=== PATIENT | male | born 1960 | race Caucasian/White ===

== ENCOUNTER → 2016-08-04 | Outpatient (CLI) | payer BC, OTHER ==
[2016-08-04 14:22] LABS: BASO % 1.1 % (0.0-1.0); EOS # 0.1 K/mm3 (0.0-0.50); EOS % 3.3 % (0.0-3.0); LYMPH # 1.3 K/mm3 (1.5-4.5); LYMPH % 28.3 % (24.0-44.0); MEAN CORPUSCULAR HEMOGLOBIN 31.9 pg (27.0-33.0); MEAN CORPUSCULAR HGB CONC 34.1 g/dl (32.0-36.5); MEAN CORPUSCULAR VOLUME 93.6 fl (80.0-96.0); MONO # 0.3 K/mm3 (0.0-0.8); MONO % 7.2 % (0.0-5.0); NEUTROPHILS # 2.4 K/mm3 (1.8-7.7); NEUTROPHILS % 57.4 % (36.0-66.0); RED CELL DISTRIBUTION WIDTH 13.2 % (11.5-14.5); WHITE BLOOD COUNT 4.2 K/mm3 (4.0-10.0)
[2016-08-04 14:35] LABS: ALBUMIN 4.1 GM/DL (3.2-5.2); ALBUMIN/GLOBULIN RATIO 1.32 (1.00-1.93); ALKALINE PHOSPHATASE 97 U/L (45-117); ALT/SGPT 69 U/L (12-78); ANION GAP 7 MEQ/L (8-16); AST/SGOT 25 U/L (15-37); BILIRUBIN,TOTAL 0.5 MG/DL (0.2-1.0); BLOOD UREA NITROGEN 17 MG/DL (7-18); CALCIUM LEVEL 8.9 MG/DL (8.5-10.1); CARBON DIOXIDE LEVEL 28 MEQ/L (21-32); CHLORIDE LEVEL 105 MEQ/L (98-107); CHOLESTEROL LEVEL 255 MG/DL (<200); CREATININE FOR GFR 0.91 MG/DL (0.70-1.30); FREE T4 0.78 NG/DL (0.76-1.46); GLOMERULAR FILTRATION RATE > 60.0 (>56); GLUCOSE, FASTING 112 MG/DL (70-105); POTASSIUM SERUM 5.1 MEQ/L (3.5-5.1); SODIUM LEVEL 140 MEQ/L (136-145); TOTAL PROTEIN 7.2 GM/DL (6.4-8.2); TRIGLYCERIDES LEVEL 129 MG/DL (<150)
== END ==
LOC: M SMT 07:58
PROVIDERS: ATTEND Physician Assistant
DX: Z00.00 Encounter for general adult medical examination without abnormal findings (principal); I10 Essential (primary) hypertension; E55.9 Vitamin D deficiency, unspecified

== ENCOUNTER → 2016-10-05 | Outpatient (CLI) | payer BC, OTHER ==
[~2016-10-05] VITALS: Ht 182.9 cm; Wt 117.9 kg
[~2016-10-05] MED LIST: AMLO10TA PO; ASPI1TAB PO; CRES5TAB PO; LOSA50TA20 PO; LR 1,000 ML IV SCH; PROPOFOL 200 MG/20 ML VIAL As Ordered ONE; VITMTA PO; XYZA5TAB2 PO
[2016-10-05 10:50] VITALS: BP 133/89
--- NOTE | 2016-10-05 11:04 | ROOR ---
Patient Name: Wilman Ernst Procedure Date: 10/05/2016 9:33 AM Date of : 1960 Age: 56 Room: [facility] Gender: Male Note Status: Finalized Procedure: Colonoscopy Indications: Screening for colorectal malignant neoplasm, This is the patient's first colonoscopy Providers: Paul Woods MD Referring MD: Adrianne SORIANO DO Requestyasemin Provider: Medicines: Monitored Anesthesia Care Complications: No immediate complications. Procedure: Pre-Anesthesia Assessment: - Prior to the procedure, a History and Physical was performed, and patient medications and allergies were reviewed. The patient is competent. The risks and benefits of the procedure and the sedation options and risks were discussed with the patient. All questions were answered and informed consent was obtained. Patient identification and proposed procedure were verified by the physician, the nurse and the anesthesiologist in the procedure room. Mental Status Examination: alert and oriented. Airway Examination: normal oropharyngeal airway and neck mobility. CV Examination: regular rate and rhythm. Prophylactic Antibiotics: The patient does not require prophylactic antibiotics. Prior Anticoagulants: The patient has taken no previous anticoagulant or antiplatelet agents. ASA Grade Assessment: II - A patient with mild systemic disease. After reviewing the risks and benefits, the patient was deemed in satisfactory condition to undergo the procedure. The anesthesia plan was to use monitored anesthesia care (MAC). Immediately prior to administration of medications, the patient was re-assessed for adequacy to receive sedatives. The heart rate, respiratory rate, oxygen saturations, blood pressure, adequacy of pulmonary ventilation, and response to care were monitored throughout the procedure. The physical status of the patient was re-assessed after the procedure. The was introduced through the anus and advanced to the terminal ileum, with identification of the appendiceal orifice and IC valve. The colonoscopy was performed without difficulty. The patient tolerated the procedure well. The quality of the bowel preparation was excellent. Findings: The perianal and digital rectal examinations were normal. A 4 mm polyp was found in the hepatic flexure. The polyp was sessile. The polyp was removed with a hot biopsy forceps. Resection and retrieval were complete. The pathology specimen was placed into Bottle Number 1. A 5 mm polyp was found in the descending colon. The polyp was sessile. The polyp was removed with a hot biopsy forceps. Resection and retrieval were complete. The pathology specimen was placed into Bottle Number 2. A 8 mm polyp was found in the descending colon. The polyp was pedunculated. The polyp was removed with a hot snare. Resection and retrieval were complete. The pathology specimen was placed into Bottle Number 2. Estimated blood loss: none. A 12 mm polyp was found at 50 cm proximal to the anus. The polyp was pedunculated. The polyp was removed with a hot snare. Resection and retrieval were complete. The pathology specimen was placed into Bottle Number 3. A 5 mm polyp was found in the rectum. The polyp was sessile. The polyp was removed with a hot biopsy forceps. Resection and retrieval were complete. The pathology specimen was placed into Bottle Number 4. Impression: - One 4 mm polyp at the hepatic flexure, removed with a hot biopsy forceps. Resected and retrieved. - One 5 mm polyp in the descending colon, removed with a hot biopsy forceps. Resected and retrieved. - One 8 mm polyp in the descending colon, removed with a hot snare. Resected and retrieved. - One 12 mm polyp at 50 cm proximal to the anus, removed with a hot snare. Resected and retrieved. - One 5 mm polyp in the rectum, removed with a hot biopsy forceps. Resected and retrieved. Recommendation: - Await pathology results. - Telephone endoscopist for pathology results in 1 week. Paul Woods MD 10/05/2016 11:04:15 AM Number of Addenda: 0 Note Initiated On: 10/05/2016 9:33 AM Estimated Blood Loss: Estimated blood loss: none.
== END | disposition home or self-care (01) ==
LOC: M OPP 08:05
PROVIDERS: ATTEND Surgery
DX: Z12.11 Encounter for screening for malignant neoplasm of colon (principal); K63.5 Polyp of colon; D12.4 Benign neoplasm of descending colon; D12.5 Benign neoplasm of sigmoid colon; K62.1 Rectal polyp; I10 Essential (primary) hypertension; E78.00 Pure hypercholesterolemia, unspecified; K21.9 Gastro-esophageal reflux disease without esophagitis; Z79.899 Other long term (current) drug therapy; Z79.82 Long term (current) use of aspirin

== ENCOUNTER 2016-10-11 09:09 | Inpatient (IN) | payer BC, OTHER ==
[2016-10-11] VITALS (7 sets, daily range): BP systolic 126–148; BP diastolic 63–90
[~2016-10-11 09:09] MED LIST changes: -LR 1,000 ML IV SCH; -PROPOFOL 200 MG/20 ML VIAL As Ordered ONE; -VITMTA PO
[2016-10-11] MEDS ORDERED: ACETAMINOPHEN TAB 650MG DOSE (2X325MG) PO PRN (10:45)
[2016-10-11] MEDS ORDERED: VITMTA PO (11:30)
[2016-10-11] MEDS: LR 1,000 ML IV SCH ×3 (11:47→23:47)
[2016-10-11 16:27] LABS: MEAN CORPUSCULAR HEMOGLOBIN 32.1 pg (27.0-33.0); MEAN CORPUSCULAR HGB CONC 34.5 g/dl (32.0-36.5); MEAN CORPUSCULAR VOLUME 93.1 fl (80.0-96.0); RED CELL DISTRIBUTION WIDTH 13.1 % (11.5-14.5); WHITE BLOOD COUNT 6.7 K/mm3 (4.0-10.0)
--- NOTE | 2016-10-11 18:10 | HPE ---
DATE OF ADMISSION: 10/11/2016 ADMISSION DIAGNOSIS: Rectal bleeding 6 days postoperative from colonoscopy with polypectomy. HISTORY OF PRESENT ILLNESS: The patient is a very pleasant 56-year-old man who on 10/05/2016, had undergone an initial routine screening colonoscopy. The procedure had gone well without apparent complication. His bowel preparation was good and a complete examination was obtained all the way to the terminal ileum. The patient was found to have five small polyps that were resected. Three of these were quite small and were biopsied and destroyed with a hot biopsy forceps. There were two larger pedunculated polyps in the descending colon and at 50 cm from the anus which were snared. His pathology report revealed a sessile serrated polyp in the hepatic flexure area. The other polyps were all tubular or tubulovillous adenomas. He was discharged home on the day of procedure and had been doing well until approximately 3 o'clock in the morning on 10/11/2016, when he awakened and felt the urge to have a bowel movement. On defecation he noted the passage of some somewhat dilute bloody fluid. Over the course of the next 4 hours or so he reports having had six bowel movements containing blood of increasing degree. He presented at the [facility] for evaluation. In the emergency department he was evaluated and found to have a hematocrit of approximately 32%. He had some grossly bloody material on digital rectal examination. He was transiently hypotensive and received a bolus of fluid with resolution. I was contacted by the emergency department physician and the patient was accepted in transfer directly for evaluation and management of his colonic bleeding. MEDICATIONS: The patient's usual medications include: - aspirin 81 mg by mouth daily - Crestor 5 mg by mouth daily - Norvasc 10 mg daily - vitamin D3 4000 units by mouth daily ALLERGIES: Are none known. MEDICAL HISTORY: Is significant for hypertension and hypercholesterolemia. PAST SURGICAL HISTORY: He underwent repair of a rotator cuff injury on the left on 06/13/2016. He had a carpal tunnel release on the right in 2011 and had an adenoidectomy in 2010. On 10/05/2016 he underwent his colonoscopy with resection of polyps. FAMILY HISTORY: Noncontributory. There is no family history of colorectal cancer or polyps. SOCIAL HISTORY: The patient is a nonsmoker. REVIEW OF SYSTEMS: Reveals no prior history of rectal bleeding. He denies any abdominal pain. He has had no nausea or vomiting. He denies any history of hepatitis, pancreatitis or peptic ulcer disease. He has no cardiac or respiratory problems. He denies any genitourinary, musculoskeletal, neurologic or psychiatric symptoms. Remainder of review of systems is unremarkable. PHYSICAL EXAMINATION: Reveals a pleasant man lying quietly on the hospital bed. His temperature is 98.5 with a pulse of 90, respirations of 19 and a blood pressure of 148/81. His room air oxygen saturation is 97%. He is alert, oriented and cooperative. Sclerae are anicteric. Mucous membranes are moist. Neck is supple without mass or bruit. Heart exam shows a regular rate and rhythm. Lungs are clear to auscultation. The abdomen is moderately obese. He has bowel sounds present in all four quadrants. The abdomen is nontender to percussion. Palpation yields no tenderness and there is no palpable mass. There is no evident hernia. Extremities are without edema. He has palpable radial and pedal pulses. IMPRESSION: 1. Post polypectomy hemorrhage now 6 days post colonoscopy. 2. Hypertension. 3. Hypercholesterolemia. 4. Anemia secondary to blood loss. PLAN: The patient has been admitted to [facility]. He has been instructed to utilize the commode so that we can measure his output of stool to better backpackers manager his degree of bleeding. He is not complaining of any lightheadedness or dizziness at this time and has requested that he be allowed out of bed to a chair. I advised him that he can be up to a chair but that he must be very careful and move slowly and if he has any dizziness he must just return to the bed and request assistance whenever he desires to move. I will initially let him try some clear liquids but if it is clear that he is going to continue bleeding, then I will convert him to nothing by mouth status and anticipate proceeding with colonoscopy. I would anticipate that the most likely source for him to be bleeding is from the stalk of the polyp at 50 cm which was the largest of the polyps. Certainly any of his biopsy sites could be the cause of his bleeding. He was counseled that there is a chance that he will bleed enough to require blood transfusion, although we would like to avoid this if we can certainly. I will check back on him later in the day to see how things are progressing. JOSE RAMON
[2016-10-11] MEDS ORDERED: PROPOFOL 200 MG/20 ML VIAL As Ordered ONE ×5 (20:34→21:44)
[2016-10-11] MEDS ORDERED: fentaNYL 100 MCG/2 ML INJECTION (J3010) IV PRN (22:15)
[2016-10-11] MEDS ORDERED: NORCO, ANEXSIA 5/325MG TABLET (HYDROcodone/ACETAMINOPHEN) PO PRN ×2 (22:15→23:15)
[2016-10-11] MEDS ORDERED: ONDANSETRON 4MG/2ML VIAL (J2405) IV PRN ×2 (22:15→23:15)
[2016-10-11] MEDS ORDERED: LR 1,000 ML IV SCH (22:15)
[2016-10-12] VITALS (8 sets, daily range): BP systolic 118–140; BP diastolic 57–88
[2016-10-12 07:00] LABS: MEAN CORPUSCULAR HGB CONC 34.4 g/dl (32.0-36.5); RED CELL DISTRIBUTION WIDTH 13.2 % (11.5-14.5); WHITE BLOOD COUNT 5.1 K/mm3 (4.0-10.0)
[2016-10-12] MEDS: amLODIPine 10 MG TAB PO SCH (09:00)
[2016-10-12] MEDS: LR 1,000 ML IV SCH (09:15)
[2016-10-12] MEDS: LOSARTAN 50 MG TAB PO SCH (11:58)
[2016-10-13 02:00] VITALS: BP 124/75
[2016-10-13 06:00] VITALS: BP 130/85
[2016-10-13 06:29] LABS: MEAN CORPUSCULAR HEMOGLOBIN 33.3 pg (27.0-33.0); MEAN CORPUSCULAR HGB CONC 35.7 g/dl (32.0-36.5); MEAN CORPUSCULAR VOLUME 93.3 fl (80.0-96.0); RED CELL DISTRIBUTION WIDTH 13.5 % (11.5-14.5); WHITE BLOOD COUNT 4.2 K/mm3 (4.0-10.0)
[2016-10-13] MEDS: amLODIPine 10 MG TAB PO SCH (09:27)
[2016-10-13 09:28] VITALS: BP 130/85
[2016-10-13] MEDS: LOSARTAN 50 MG TAB PO SCH (09:28)
[2016-10-13 10:00] VITALS: BP 139/77
--- NOTE | 2016-10-19 18:30 | ROOR ---
Patient Name: Wilman Ernst Procedure Date: 10/11/2016 7:48 PM Date of : 1960 Age: 56 Gender: Male Note Status: Finalized Procedure: Colonoscopy Indications: Treatment of bleeding from polypectomy site Providers: Paul Woods MD Referring MD: 2. Inpatient 2. Inpatient Requesting Provider: Medicines: Monitored Anesthesia Care Complications: No immediate complications. Procedure: Pre-Anesthesia Assessment: - Prior to the procedure, a History and Physical was performed, and patient medications and allergies were reviewed. The patient is competent. The risks and benefits of the procedure and the sedation options and risks were discussed with the patient. All questions were answered and informed consent was obtained. Patient identification and proposed procedure were verified by the physician, the nurse and the anesthesiologist in the procedure room. Mental Status Examination: alert and oriented. Airway Examination: normal oropharyngeal airway and neck mobility. CV Examination: regular rate and rhythm. Prophylactic Antibiotics: The patient does not require prophylactic antibiotics. Prior Anticoagulants: The patient has taken no previous anticoagulant or antiplatelet agents. ASA Grade Assessment: II - A patient with mild systemic disease. After reviewing the risks and benefits, the patient was deemed in satisfactory condition to undergo the procedure. The anesthesia plan was to use monitored anesthesia care (MAC). Immediately prior to administration of medications, the patient was re-assessed for adequacy to receive sedatives. The heart rate, respiratory rate, oxygen saturations, blood pressure, adequacy of pulmonary ventilation, and response to care were monitored throughout the procedure. The physical status of the patient was re-assessed after the procedure. The Colonoscope was introduced through the anus and advanced to the cecum, identified by appendiceal orifice and ileocecal valve. The colonoscopy was performed without difficulty. The patient tolerated the procedure well. The quality of the bowel preparation was poor. Pt was not prepped due to acute bleed. There was old blood throughout. Findings: The perianal and digital rectal examinations were normal. There was some old blood and clot was found in the entire colon. Nonbleeding ulcerated mucosa with no stigmata of recent bleeding were present at 80 cm proximal to the anus. There was a shallow ulceration about 8-10mm in size at about 80 cm from the anal verge. The is consistent with a polypectomy site. There is no visible vessel or bleeeding. An area of mucosa was found at 70 cm proximal to the anus. At about 70 cm from the anal verge a small thrombosed protruding polypectomy stalk was noted. This appeared to consist primarily of a vascular bundle which was thrombosed and there was no bleeding. The diameter of this stalk was perhaps 3-4mm. The colonic mucosa was extensively irrigated during the procedure. The other three polypectomy sites were not identified and no active bleeding was seen. Impression: - Blood in the entire examined colon. - Mucosal ulceration. - Mucosa at 70 cm proximal to the anus. - No specimens collected. Recommendation: - Return to hospital floor. Attending Participation: I personally performed the entire procedure. Paul Woods MD 10/19/2016 6:30:32 PM Number of Addenda: 0 Note Initiated On: 10/11/2016 7:48 PM Estimated Blood Loss: Estimated blood loss: none.
--- NOTE | 2016-10-20 11:02 | DSES ---
DATE OF ADMISSION: 10/11/2016 DATE OF DISCHARGE: 10/13/2016 ADMITTING DIAGNOSIS: Rectal bleeding six days postoperative from colonoscopy with polypectomy. HISTORY OF PRESENT ILLNESS: The patient is a pleasant 56-year-old man who had undergone a routine screening colonoscopy on October 05. The procedure had gone well. His bowel preparation was good and a complete examination was obtained. The patient was found to have five small polyps that were resected. Three of these were quite small and were biopsied and destroyed with a hot biopsy forceps. There were two larger pedunculated polyps in the descending colon and at 50 cm from the anus which were snared. His pathology report revealed a sessile serrated polyp in the hepatic flexure area. The other polyps were all tubular or tubulovillous adenomas. He was discharged home on the day of procedure. He reports that he had been doing well until approximately 3 o'clock in the morning on October 11 when he awakened and felt the urge to have a bowel movement. On defecation, he noted the passage of some somewhat dilute bloody fluid. Over the course of the next four hours or so, he reports having had six bowel movements containing blood of increasing degree. He presented at [facility] for evaluation. He was evaluated and found to have a hematocrit of approximately 32%. There was grossly bloody material on digital rectal examination. He was transiently hypotensive and received a bolus of fluid. I was contacted and accepted the patient in transfer for management of his post polypectomy bleeding. HOSPITAL COURSE: The patient was admitted at [facility] on October 11. He was actually admitted at approximately 10:45 in the morning. He was observed on the surgical floor receiving some intravenous fluids. A hematocrit done in followup on the afternoon of the revealed this to be approximately 30%. He was not having active bleeding, but still had small amounts of blood. I discussed with the patient plans for care and elected to proceed with an urgent colonoscopy to look for a bleeding source that could be stopped. He was taken to the operating room where he underwent a colonoscopy. Two of his five polypectomy sites were identified. These appeared to correspond to the sites of his two pedunculated polyps. The more proximal area represented a small shallow ulcer with no visible vessel and no bleeding. The more distal located site appeared to correspond to the resection of the larger polyp. There was a small stump of his polypectomy stalk present which appeared to be thrombosed and there was no sign of any bleeding. The other three polypectomy sites were not identified, but no active bleeding was identified at the procedure. He was returned to the [facility] [place] for continuing management. He was allowed to take some liquids following the colonoscopy. He tolerated these well. His IV fluid was decreased as his fluid intake increased. His regular blood pressure medicines were resumed. Followup CBC on the showed his hematocrit had fallen to 26%. He was observed for another day. He denied any dizziness or lightheadedness. He had no further evidence of bleeding. His diet was advanced. His hematocrit on the was 25%. He remained stable with no signs of further bleeding and he was discharged home. FINAL DIAGNOSES: 1. Post polypectomy bleed following colonoscopy with polypectomy. 2. Acute blood loss anemia. 3. Hypertension. 4. Hypercholesterolemia. PROCEDURE PERFORMED: Colonoscopy. DISPOSITION: The patient was discharged home on the 13 of October in good condition. He was counseled that he is significantly anemic and that he should beware of lightheadedness or easy fatigability at first. He was to take a regular diet as tolerated. He was advised that he should have a followup CBC in 2-3 weeks to confirm that his blood count has been recovering. If he notes any additional bleeding, he should present to the emergency department for further treatment. He should continue his usual blood pressure medications as before admission. He was to hold his aspirin for the next week, but could resume this on TuesdayOctober 20. JOSE RAMON
== END 2016-10-13 11:45 | disposition home or self-care (01) | DRG 813 ==
LOC: M MSPAV 10:50
PROVIDERS: ADMIT Surgery; ATTEND Surgery
PROC: 0DJD8ZZ Inspection of Lower Intestinal Tract, Via Natural or Artificial Opening Endoscopic (ICD-10-PCS; principal; 2016-10-11 17:17)
DX: K91.840 Postprocedural hemorrhage of a digestive system organ or structure following a digestive system procedure (principal); I10 Essential (primary) hypertension; E78.00 Pure hypercholesterolemia, unspecified; K62.5 Hemorrhage of anus and rectum; Z79.82 Long term (current) use of aspirin; Z79.899 Other long term (current) drug therapy; D62 Acute posthemorrhagic anemia